=== PATIENT | female | born 1945 | race Native Hawaiian/Other Pacific Islander ===

== ENCOUNTER 2016-06-22 15:06 | Outpatient (CLI) | payer OTHER ==
[~2016-06-22 15:06] MED LIST: CYAN10009 IM; METO50TA27 PO; XANAX XR0.5 MG OR
== END 2016-06-22 19:33 | disposition home or self-care (01) ==
LOC: MRI 15:06
DX: G30.9 Alzheimer's disease, unspecified (principal)